=== PATIENT | female | born 1995 | race Caucasian/White ===

== ENCOUNTER 2018-01-22 08:08 | Emergency (ER) | payer OTHER ==
[~2018-01-22] VITALS: Ht 154.9 cm; Wt 57.7 kg
[~2018-01-22 08:08] MED LIST: LEVO0.083; [UNRECOGNIZED DRUG - CODE]
[2018-01-22 08:23] VITALS: BP 116/59
--- NOTE | 2018-01-22 08:28 | NUR ---
PT AMBULATED TO BED 11
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
[2018-01-22 08:40] VITALS: BP 116/59
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
== END 2018-01-22 08:40 | disposition home or self-care (01) ==
LOC: MED 08:08
DX: H72.92 Unspecified perforation of tympanic membrane, left ear (principal)
CPT/HCPCS: 99283

== ENCOUNTER 2021-07-11 23:55 | Emergency (ER) | payer OTHER ==
[~2021-07-11] VITALS: Ht 154.9 cm; Wt 76.2 kg
[2021-07-12 00:05] VITALS: BP 114/67
--- NOTE | 2021-07-12 00:09 | NUR ---
PT AMBULATED TO BED 01.
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
[2021-07-12] MEDS ORDERED: IBUPROFEN 800 MG TAB PO ONE (00:25)
[2021-07-12] MEDS ORDERED: PANTOPRAZOLE 40 MG TABEC PO ONE (00:25)
[2021-07-12 01:25] VITALS: BP 114/67
--- NOTE | 2021-07-12 01:25 | NUR ---
Patient discharged with v/s stable. Written and verbal after care instructions given and explained. Patient verbalized understanding. Ambulatory with steady gait. All questions addressed prior to discharge. Advised to follow up with PMD.
== END 2021-07-12 01:25 | disposition home or self-care (01) ==
LOC: MED 23:55
DX: R07.89 Other chest pain (principal); R00.2 Palpitations; E07.9 Disorder of thyroid, unspecified; Z79.899 Other long term (current) drug therapy
CPT/HCPCS: 71045; 93005; 99283; Q0092

== ENCOUNTER 2022-07-16 13:00 | Emergency (ER) | payer OTHER ==
[~2022-07-16] VITALS: Ht 162.6 cm; Wt 59.0 kg
[2022-07-16 13:05] VITALS: BP 135/89
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
[2022-07-16] MEDS ORDERED: KETOROLAC 30 MG/ML VIAL IM ONE (13:40)
[2022-07-16] MEDS ORDERED: ACETAMINOPHEN EXTRA STRENGTH 500 MG TAB PO ONE (13:55)
[2022-07-16 14:26] LABS: BASOPHILS # (AUTO) 0.1 K/uL (0.00-0.22); BASOPHILS % (AUTO) 0.6 % (0.0-2.0); EOSINOPHILS # (AUTO) 0.1 K/uL (0-0.4); EOSINOPHILS % (AUTO) 1.3 % (0.0-4.0); HEMATOCRIT 37.7 % (36-48); HEMOGLOBIN 12.8 g/dL (12.0-16.0); LYMPHOCYTES # (AUTO) 2.8 K/uL (2.5-16.5); LYMPHOCYTES % (AUTO) 24.4 % (20.5-51.1); MEAN CORPUSCULAR HEMOGLOBIN 32 pg (27-31); MEAN CORPUSCULAR HGB CONC 34 g/dL (33-37); MEAN CORPUSCULAR VOLUME 93.2 fL (80-94); MONOCYTES # (AUTO) 0.7 K/uL (0.8-1.0); MONOCYTES % (AUTO) 6.2 % (1.7-9.3); NEUTROPHILS # (AUTO) 7.7 K/uL (1.8-7.7); NEUTROPHILS % (AUTO) 67.5 % (42.2-75.2); PLATELET COUNT (AUTO) 269 K/uL (140-450); RED BLOOD CELL COUNT(AUTO) 4.05 MIL/uL (4.20-5.40); RED CELL DISTRIBUTION WIDTH 13.2 % (11.6-13.7); WHITE BLOOD COUNT (AUTO) 11.4 K/uL (4.8-10.8)
--- NOTE | 2022-07-16 14:36 | NUR ---
PT IN [place]
[2022-07-16 14:42] LABS: ALBUMIN 3.8 g/dL (3.4-5.0); CARBON DIOXIDE 23.8 mmol/L (21-32); CREATININE 0.6 mg/dL (0.6-1.3); TOTAL BILIRUBIN 0.3 mg/dL (0.0-1.0)
[2022-07-16 14:49] LABS: ANION GAP 11.7 (8-16); POTASSIUM 3.5 mmol/L (3.5-5.1)
--- NOTE | 2022-07-16 14:53 | NUR ---
TO ER BED 9 FROM
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
[2022-07-16] MEDS ORDERED: ACETAMINOPHEN EXTRA STRENGTH 500 MG TAB ONE (15:07)
[2022-07-16 15:28] VITALS: BP 134/77
[2022-07-16] MEDS ORDERED: ACET-10509 PO (15:33)
[2022-07-16] MEDS ORDERED: CAPS1ADH5 TP (15:33)
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
== END 2022-07-16 15:40 | disposition home or self-care (01) ==
LOC: MED 13:00
DX: O26.891 Other specified pregnancy related conditions, first trimester (principal); E03.9 Hypothyroidism, unspecified; Z3A.01 Less than 8 weeks gestation of pregnancy; V49.88XA Car occupant (driver) (passenger) injured in other specified transport accidents, initial encounter; Y93.89 Activity, other specified; Y92.89 Other specified places as the place of occurrence of the external cause; Y99.8 Other external cause status
CPT/HCPCS: 36415; 76801; 80053; 81002; 81025; 84702; 85025; 99284; Q0092